=== PATIENT | male | born 1965 | race Asian ===

== ENCOUNTER 2017-05-25 21:41 | Emergency (ER) | payer SELFPAY ==
[~2017-05-25] VITALS: Ht 167.6 cm; Wt 61.7 kg
[2017-05-25 21:45] VITALS: BP 105/74
[2017-05-25] MEDS ORDERED: METAMIZOLE (21:53)
[2017-05-25] MEDS ORDERED: TYLENOL325 MG ORAL (21:53)
[2017-05-25] MEDS ORDERED: CEFUROXIME250 MG PO (21:53)
[2017-05-25] MEDS ORDERED: VENTOLIN HFA18 GM INH (22:06)
[2017-05-25] MEDS ORDERED: ZITHROMAX250 MG ORAL (22:06)
--- NOTE | 2017-05-25 22:12 | Emergency Room Report ---
History of Present Illness General Chief Complaint: Fever Source: Patient, Family Member Present Illness HPI 52YOM with 5 days intermittent fever, cough worse during the day, nasal congestion, no sore throat. Denies SOB, CP, myalgias No flu vaccine Visiting from [place] No sick contacts Took tylenol prior to arrival Allergies: Coded Allergies: No Known Allergies (Unverified , 05/25/17) Patient History Past Medical History: none Past Surgical History: none Pertinent Family History: none Social History: Denies: smoking, alcohol use, drug use Immunizations: UTD Reviewed Nursing Documentation: PMH: Agreed, PSxH: Agreed Nursing Documentation-PMH Past Medical History: No Stated History Review of Systems All Other Systems: negative except mentioned in HPI Physical Exam Vital Signs Date Time Temp Pulse Resp B/P (MAP) Pulse Ox O2 Delivery O2 Flow Rate FiO2 05/25/17 21:45 98.8 99 16 105/74 94 98.8 Sp02 EP Interpretation: reviewed, normal General Appearance: normal inspection, well appearing, no apparent distress, alert, GCS 15, non-toxic Head: normocephalic, atraumatic Eyes: bilateral eye PERRL, bilateral eye EOMI ENT: normal ENT inspection, hearing grossly normal, normal pharynx, no angioedema, normal voice, TMs + canals normal, uvula midline, moist mucus membranes, nasal congestion Neck: normal inspection, full range of motion, supple, thyroid normal, no meningismus, no bony tend Respiratory: normal inspection, lungs clear, normal breath sounds, no rhonchi, no respiratory distress, no retraction, no accessory muscle use, no wheezing, speaking full sentences Cardiovascular #1: regular rate, rhythm, no edema, no JVD, normal capillary refill Gastrointestinal: normal inspection, normal bowel sounds, non tender, soft, no mass, no peritonitis, non-distended, no guarding, no hernia, no pulsatile mass Genitourinary: no CVA tenderness Musculoskeletal: normal inspection, back normal, normal range of motion, no calf tenderness, pelvis stable, Urban's Sign negative Neurologic: normal inspection, alert, oriented x3, responsive, yard labor supervisor III-XII nml as tested, motor strength/tone normal, cerebellar normal, normal gait, speech normal Psychiatric: normal inspection, judgement/insight normal, mood/affect normal, no suicidal/homicidal ideation, no delusions Skin: normal inspection, normal color, no rash Lymphatic: normal inspection, no adenopathy Medical Decision Making Diagnostic Impression: Primary Impression: Fever Qualified Codes: R50.9 - Fever, unspecified Additional Impression: Community acquired pneumonia Qualified Codes: J18.9 - Pneumonia, unspecified organism ER Course 52YOM with cough, congestion, recurrent fevers Concerned for CAP given continued cough, fever despite anti-pyretics Will give Zpack, albuterol PRN Close PMD followup Otherwise, VSS,well appearing, no comorbidities ER course: Patient has remained stable during ED stay. Disposition: Patient is to be discharged to home. Prescriptions given are zpack, ventolin Patient is instructed to follow up with their primary care doctor within 5 days. Strict return precautions discussed with patient such as fever, chills, worsening/severe pain, nausea, vomiting, which may indicate severe illness. Patient verbalizes understanding and agrees with plan. Please note that this Emergency Department Report was dictated using [employer] container tester technology software, occasionally this can lead to erroneous entry secondary to interpretation by the dictation equipment Last Vital Signs Date Time Temp Pulse Resp B/P (MAP) Pulse Ox O2 Delivery O2 Flow Rate FiO2 05/25/17 21:45 98.8 99 16 105/74 94 98.8 Status: improved Disposition: HOME, SELF-CARE Condition: Improved Scripts Albuterol Sulfate (VENTOLIN HFA) 18 Gm Hfa.aer.ad 1 PUFF INH EVERY 6 HOURS for cough, SOB, #18 GM 0 Refills Prov: DOREEN OCAMPO M.D. 05/25/17 Azithromycin* (ZITHROMAX*) 250 Mg Tablet 250 MG ORAL DAILY for 5 Days, #6 TAB 0 Refills Take two tables once daily for 1 day, then one tablet once daily for 4 days. Prov: DOREEN OCAMPO M.D. 05/25/17 Patient Instructions: Fever, Adult, [id number], Community-Acquired Pneumonia , Adult, [id number] Additional Instructions: - Take Azithromycin antibiotic for next 5 days - Use albuterol during the day for cough, chest tightness, shortness of breath DOREEN OCAMPO M.D. May 25, 2017 22:12
[2017-05-25 22:14] VITALS: BP 105/74
== END 2017-05-25 22:14 | disposition home or self-care (01) ==
LOC: EMR 22:04
DX: J18.9 Pneumonia, unspecified organism (principal)
CPT/HCPCS: 99284